=== PATIENT | male | born 1970 | race Caucasian/White ===

== ENCOUNTER 2016-11-10 11:16 | Emergency (ER) | payer OTHER ==
--- NOTE | 2016-11-10 13:03 | ED NURSING NOTES ---
Clinical Report - Nurses [facility] [place] [address] 11/10/2016 11:21 Patient: CORNELL LI TRIAGE Triage time 11:33. Chief Complaint: INJURY TO LEFT WRIST. Alert. --11:40 Shannan Roberto R.N. 11:32 11/10/16. BP: 125/87. HR: 70. RR: 18. O2 saturation: 100%. Pain level now: 06/27. --11:40 Shannan Roberto R.N. 11:42 11/10/16. Temp: 98.1 F. --11:42 Shannan Roberto R.N. Weight: 74.8 kg stated. Height/Length: 69 inches Per Patient. BMI: 24.4. --11:37 Shannan Roberto R.N. Medications Atorvastatin Calcium Oral. Omeprazole Oral. PARoxetine HCl Oral. --11:35 Shannan Roberto R.N. Allergies No Known Drug Allergy. --11:36 Shannan Roberto R.N. History Arrived by private vehicle. Historian: patient. Accompanied by (boss). Primary physician (Lamar Capps). ( Pt was at work, and cut his wrist on a metal strapping on a crate, pt bent over and passed out briefly, pt's boss called 911, they applied a pressure dressing). This occurred just prior to arrival and today. He sustained a laceration from a sharp edge. 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 PAST MEDICAL HX: Tetanus status: up-to-date. SOCIAL HX: Never smoker. No alcohol use or drug use. NUTRITIONAL RISK ASSESSMENT: The nutritional risk assessment revealed no deficiencies. FUNCTIONAL ASSESSMENT: Functional assessment: no impairments noted. --11:40 Shannan Roberto R.N. PROBLEMS: no known problems. ADDITIONAL SURGERIES: Vasectomy. --11:36 Shannan Roberto R.N. Interventions ID band on patient. To room. --11:40 Shannan Roberto R.N. PHYSICAL ASSESSMENT EXTREMITIES: Left distal radius: subcutaneous laceration with controlled bleeding. --11:43 Shannan Roberto R.N. NURSING PROGRESS NOTES 11:43 11/10/16. Patient identifiers checked. Call light placed in reach. Bed placed in lowest position. Patient ready for evaluation- chart flagged. --11:43 Shannan Roberto R.N. ( Left hand/wrist placed in warm water with hibiclens.). --11:47 Shannan Roberto R.N. 13:03. Applied sterile dressing consisting of 4x4 gauze, following the application of antibiotic ointment (bacitracin). Secured with tonia (coban applied to outermost dressing). --13:54 Shannan Roberto R.N. DISPOSITION / DISCHARGE Departure time: 1310. Condition at departure: improved. No learning barriers present. Reviewed wound care instructions. Reviewed referral to family practice for followup. Work note given. Verbalized understanding. Written instructions provided. The patient was discharged home. He left the Emergency Department ambulatory and via private vehicle. --13:51 Shannan Roberto R.N. 13:10 11/10/16. BP: 137/81. HR: 66. RR: 16. O2 saturation: 100%. Pain level now: 0/10. --13:51 Shannan Roberto R.N. ( 1 suture pack). --13:51 Shannan Roberto R.N. Locked/Released at 11/10/2016 13:55 by Shannan Roberto R.N.
--- NOTE | 2016-11-10 13:03 | ED NURSING NOTES ---
Clinical Report - [facility]es [facility] [place] [address] 11/10/2016 11:21 Patient: CORNELL LI TRIAGE Triage time 11:33. Chief Complaint: INJURY TO LEFT WRIST. Alert. --11:40 Shannan Roberto R.N. 11:32 11/10/16. BP: 125/87. HR: 70. RR: 18. O2 saturation: 100%. Pain level now: 06/27. --11:40 Shannan Roberto R.N. 11:42 11/10/16. Temp: 98.1 F. --11:42 Shannan Roberto R.N. Weight: 74.8 kg stated. Height/Length: 69 inches Per Patient. BMI: 24.4. --11:37 Shannan Roberto R.N. Medications Atorvastatin Calcium Oral. Omeprazole Oral. PARoxetine HCl Oral. --11:35 Shannan Roberto R.N. Allergies No Known Drug Allergy. --11:36 Shannan Roberto R.N. History Arrived by private vehicle. Historian: patient. Accompanied by (boss). Primary physician (Lamar Capps). ( Pt was at work, and cut his wrist on a metal strapping on a crate, pt bent over and passed out briefly, pt's boss called 911, they applied a pressure dressing). This occurred just prior to arrival and today. He sustained a laceration from a sharp edge. 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 PAST MEDICAL HX: Tetanus status: up-to-date. SOCIAL HX: Never smoker. No alcohol use or drug use. NUTRITIONAL RISK ASSESSMENT: The nutritional risk assessment revealed no deficiencies. FUNCTIONAL ASSESSMENT: Functional assessment: no impairments noted. --11:40 Shannan Roberto R.N. PROBLEMS: no known problems. ADDITIONAL SURGERIES: Vasectomy. --11:36 Shannan Roberto R.N. Interventions ID band on patient. To room. --11:40 Shannan Roberto R.N. PHYSICAL ASSESSMENT EXTREMITIES: Left distal radius: subcutaneous laceration with controlled bleeding. --11:43 Shannan Roberto R.N. NURSING PROGRESS NOTES 11:43 11/10/16. Patient identifiers checked. Call light placed in reach. Bed placed in lowest position. Patient ready for evaluation- chart flagged. --11:43 Shannan Roberto R.N. ( Left hand/wrist placed in warm water with hibiclens.). --11:47 Shannan Roberto R.N. 13:03. Applied sterile dressing consisting of 4x4 gauze, following the application of antibiotic ointment (bacitracin). Secured with tonia (coban applied to outermost dressing). --13:54 Shannan Roberto R.N. DISPOSITION / DISCHARGE Departure time: 1310. Condition at departure: improved. No learning barriers present. Reviewed wound care instructions. Reviewed referral to family practice for followup. Work note given. Verbalized understanding. Written instructions provided. The patient was discharged home. He left the Emergency Department ambulatory and via private vehicle. --13:51 Shannan Roberto R.N. 13:10 11/10/16. BP: 137/81. HR: 66. RR: 16. O2 saturation: 100%. Pain level now: 0/10. --13:51 Shannan Roberto R.N. ( 1 suture pack). --13:51 Shannan Roberto R.N. Locked/Released at 11/10/2016 13:55 by Shannan Roberto R.N.
--- NOTE | 2016-11-10 13:03 | ED CLINICAL REPORT ---
Clinical Report - Physicians/Mid Levels [facility] [address] [place] [address] 11/10/2016 11:21 Patient: CORNELL LI Time Seen: 11:31; initial patient contact. Arrived- By private vehicle. Historian- patient. HISTORY OF PRESENT ILLNESS Chief Complaint: Injury to the left wrist. The injury happened just prior to arrival. Occurred at work. The patient sustained a laceration from a sharp edge. Patient is experiencing mild pain. Patient denies injury to the head or neck. REVIEW OF SYSTEMS The patient sustained a laceration. No tingling, numbness or foreign body. All systems otherwise negative, except as recorded above. PAST HISTORY Negative. The patient's dominant hand is the right. Surgeries: Vasectomy. SOCIAL HISTORY Never smoker. No alcohol use or drug use. ADDITIONAL NOTES The nursing notes have been reviewed. PHYSICAL EXAM Vital Signs: 11/10/2016 11:42 Temp: 98.1 F. 11/10/2016 11:32 BP: 125/87. HR: 70. RR: 18. O2 saturation: 100%. Pain level now: 06/27. Have been reviewed as normal. Appearance: Alert. Oriented X3. No acute distress. Skin: Skin warm and dry. Extremities: Left wrist: mild tenderness and subcutaneous laceration. SEE LACERATION PROCEDURE NOTE #1. Neurovascular intact distally. Hand and wrist exam otherwise negative. Extremities otherwise negative. Neuro, Vascular and Tendons: Vascular status intact. Sensation intact. Motor intact. Tendon function intact. Neuro: Oriented X 3. No motor deficit. No sensory deficit. PROGRESS AND PROCEDURES Laceration Repair: Time: 13:01. Location: left wrist. Length: 6.0cm. Complexity: simple (local anesthesia used and sutured). Wound depth/shape- subcutaneous and linear. Distal neuro/vascular/tendon status normal. Anesthesia provided using 2% lidocaine (3 mL). Prepped with Hibiclens. Wound explored and cleansed with normal saline. Closure of skin: 4-0 Prolene (5 sutures). Post-procedure: he is stable and there are no complications. Bleeding is controlled and neuro-vascular status is intact distal to the wound. Dressing applied. Tetanus immunization up-to-date. Estimated blood loss: 4 mL. Disposition: Discharged home in good and improved condition. Condition: good. CLINICAL IMPRESSION Single superficial laceration to the left wrist.No foreign body present. INSTRUCTIONS Protect wound and keep wound area clean. You may wash wounds briefly, then dry. Apply bacitracin twice daily. Sutures/khushi should be removed in seven days. Do not work today. Your Current Medications: CONTINUE TAKING THE FOLLOWING MEDICATIONS: Atorvastatin Calcium Oral. Omeprazole Oral. PARoxetine HCl Oral. Follow-up: Follow up with your doctor in seven days for suture removal. Call for an appointment. Screening today revealed the patient's blood pressure to be in the pre-hypertensive range. The patient should follow up with a primary care provider for blood pressure management. (Electronically signed by Pete Adam Dr. 11/10/2016 14:35)
--- NOTE | 2016-11-10 13:03 | ED CLINICAL REPORT ---
Clinical Report - Physicians/Mid Levels [facility] [address] [place] [address] 11/10/2016 11:21 Patient: CORNELL LI Time Seen: 11:31; initial patient contact. Arrived- By private vehicle. Historian- patient. HISTORY OF PRESENT ILLNESS Chief Complaint: Injury to the left wrist. The injury happened just prior to arrival. Occurred at work. The patient sustained a laceration from a sharp edge. Patient is experiencing mild pain. Patient denies injury to the head or neck. REVIEW OF SYSTEMS The patient sustained a laceration. No tingling, numbness or foreign body. All systems otherwise negative, except as recorded above. PAST HISTORY Negative. The patient's dominant hand is the right. Surgeries: Vasectomy. SOCIAL HISTORY Never smoker. No alcohol use or drug use. ADDITIONAL NOTES The nursing notes have been reviewed. PHYSICAL EXAM Vital Signs: 11/10/2016 11:42 Temp: 98.1 F. 11/10/2016 11:32 BP: 125/87. HR: 70. RR: 18. O2 saturation: 100%. Pain level now: 06/27. Have been reviewed as normal. Appearance: Alert. Oriented X3. No acute distress. Skin: Skin warm and dry. Extremities: Left wrist: mild tenderness and subcutaneous laceration. SEE LACERATION PROCEDURE NOTE #1. Neurovascular intact distally. Hand and wrist exam otherwise negative. Extremities otherwise negative. Neuro, Vascular and Tendons: Vascular status intact. Sensation intact. Motor intact. Tendon function intact. Neuro: Oriented X 3. No motor deficit. No sensory deficit. PROGRESS AND PROCEDURES Laceration Repair: Time: 13:01. Location: left wrist. Length: 6.0cm. Complexity: simple (local anesthesia used and sutured). Wound depth/shape- subcutaneous and linear. Distal neuro/vascular/tendon status normal. Anesthesia provided using 2% lidocaine (3 mL). Prepped with Hibiclens. Wound explored and cleansed with normal saline. Closure of skin: 4-0 Prolene (5 sutures). Post-procedure: he is stable and there are no complications. Bleeding is controlled and neuro-vascular status is intact distal to the wound. Dressing applied. Tetanus immunization up-to-date. Estimated blood loss: 4 mL. Disposition: Discharged home in good and improved condition. Condition: good. CLINICAL IMPRESSION Single superficial laceration to the left wrist.No foreign body present. INSTRUCTIONS Protect wound and keep wound area clean. You may wash wounds briefly, then dry. Apply bacitracin twice daily. Sutures/khushi should be removed in seven days. Do not work today. Your Current Medications: CONTINUE TAKING THE FOLLOWING MEDICATIONS: Atorvastatin Calcium Oral. Omeprazole Oral. PARoxetine HCl Oral. Follow-up: Follow up with your doctor in seven days for suture removal. Call for an appointment. Screening today revealed the patient's blood pressure to be in the pre-hypertensive range. The patient should follow up with a primary care provider for blood pressure management. (Electronically signed by Pete Adam Dr. 11/10/2016 14:35)
--- NOTE | 2016-11-10 14:35 | ED MED RECONCILIATION SUMMARY ---
Patient: CORNELL LI Medication Reconciliation Report [facility] VisitID: [id number] [address] [place] [place] [address] 46y, M Registration Date/Time: 11/10/2016 Weight: 74.8 kg Height/Length: 69 in. BMI: 24.4 ALLERGIES: No Known Drug Allergy The patient's Home Medications are listed below: CONTINUE TAKING THE FOLLOWING MEDICATIONS: Atorvastatin Calcium Oral Omeprazole Oral PARoxetine HCl Oral The source(s) of the original Home Medication information: Not obtained. The following Medications were given to the patient in the Emergency Department: None. The following Medications were prescribed to the patient: None.
--- NOTE | 2016-11-10 14:35 | ED MAR SUMMARY ---
..... Medication Administration Record [facility] [address] [place], [place] [id number] Patient: CORNELL LI Visit ID: [id number] 46y, M Weight: 74.8 kg Height/Length: 69 in BMI: 24.4 ALLERGIES: No Known Drug Allergy
--- NOTE | 2016-11-10 14:35 | ED DISCHARGE INSTRUCTIONS ---
Patient: CORNELL LI General Instructions [facility] VisitID: [id number] [place] [address] 46y, M Registration Date/Time: 11/10/2016 Single superficial laceration to the left wrist.No foreign body present. INSTRUCTIONS Protect wound and keep wound area clean. You may wash wounds briefly, then dry. Apply bacitracin twice daily. Sutures/khushi should be removed in seven days. Do not work today. Your Current Medications: CONTINUE TAKING THE FOLLOWING MEDICATIONS: Atorvastatin Calcium Oral. Omeprazole Oral. PARoxetine HCl Oral. Follow-up: Follow up with your doctor in seven days for suture removal. Call for an appointment. Screening today revealed the patient's blood pressure to be in the pre-hypertensive range. The patient should follow up with a primary care provider for blood pressure management. ADDITIONAL INFORMATION Laceration (All Closures) Alaceration is a cut through the skin. This will usually require stitches (sutures) or khushi if it is deep. Minor cuts may be treated with a surgical tape closure orskin glue. Home care The following guidelines will help you care for your laceration at home: Extremity, face, or trunk wounds Keep the wound clean and dry. If a bandage was applied and it becomes wet or dirty, replace it. Otherwise, leave it in place for the first 24 hours. If stitches or khushi were used, clean the wound daily. After removing the bandage, wash the area with soap and water. Use a wet cotton swab to loosen and remove any blood or crust that forms. The doctor may prescribe an antibiotic cream or ointment to prevent infection. Do not stop taking this medication until you have finished the prescribed course or the doctor tells you to stop. The doctor may also prescribe medications for pain. Follow the doctors instructions for taking these medications. You may remove the bandage to shower as usual after the first 24 hours, but do not soak the area in water (no swimming) until the stitches or khushi are removed. If surgical tape was used, keep the area clean and dry. If it becomes wet, blot it dry with a towel. If skin glue was used, do not scratch, rub, or pick at the adhesive film. Do not place tape directly over the film. Do not apply liquid, ointment, or creams to the wound while the film is in place. Do not clean the wound with peroxide and do not apply ointments. Avoid activities that cause heavy sweating until the film has fallen off. Protect the wound from prolonged exposure to sunlight or tanning lamps. You may shower as usual but do not soak the wound in water (no baths or swimming). The film will fall off by itself in 510 days. Scalp wounds During the first two days, you may carefully rinse your hair in the shower to remove blood, glass or dirt particles. After two days, you may shower and shampoo your hair normally. Do not soak your scalp in the tub or go swimming until the stitches or khushi have been removed. Talk with your doctor before applying any antibiotic ointment to the wound. Mouth wounds Eat soft foods to reduce pain. If the cut is inside of your mouth, clean by rinsing after each meal and at bedtime with a mixture of equal parts water and hydrogen peroxide (do not swallow!). Or, you can use a cotton swab to directly apply hydrogen peroxide onto the cut. Mouth wounds can be painful when eating. You may use an [id number] local numbing solution for pain relief. If this is not available, you may use any numbing solution for teething babies. You may apply this directly to the sores with a cotton-tip swab or with your finger. Follow-up care Follow up with your health care provider. Most skin wounds heal within ten days. Mouth and facial wounds heal within five days. However, even with proper treatment, a wound infection may sometimes occur. Therefore, you should check the wound daily for signs of infection listed below. Stitches should be removed from the face within five days; stitches and khushi should be removed from other parts of the body within 714 days. If dissolving stitches were used in the mouth, these will fall out or dissolve without the need for removal. If tape closures were used, remove them yourself if they have not fallen off after 7 days. Ifskin glue was used, the film will fall off by itself in 510 days. When to seek medical care Get prompt medical attention if any of these occur: Bleeding not controlled by direct pressure Signs of infection, including increasing pain in the wound, increasing wound redness or swelling, or pus coming from the wound Fever of 100.4F (38C) or higher, or as directed by your health care provider Stitches or khushi come apart or fall out or surgical tape falls off before 7 days Wound edges re-open Bandage Change If the bandage becomes wet or dirty, replace it. Otherwise, leave it in place for the first 24 hours. Then once a day: After removing the bandage, wash the area with soap and water. Use a wet cotton swab to loosen and remove any blood or crust that forms on the wound. After cleaning, apply a thin layer of antibiotic ointment or cream. Reapply the bandage. You may shower as usual after the first 24 hours. If the bandage is on an arm or leg, cover it with a plastic bag rubber banded at both ends before showering. No tub baths or swimming until the bandage is removed and the wound healed (at least 7 days). You have been given the following additional information: Laceration, All Dressing Change Do not work today. (Electronically signed by Pete Adam Dr. 11/10/2016 14:35)
--- NOTE | 2016-11-10 14:35 | ED MED RECONCILIATION SUMMARY ---
Patient: CORNELL LI Medication Reconciliation Report [facility] VisitID: [id number] [address] [place] [place] [address] 46y, M Registration Date/Time: 11/10/2016 Weight: 74.8 kg Height/Length: 69 in. BMI: 24.4 ALLERGIES: No Known Drug Allergy The patient's Home Medications are listed below: CONTINUE TAKING THE FOLLOWING MEDICATIONS: Atorvastatin Calcium Oral Omeprazole Oral PARoxetine HCl Oral The source(s) of the original Home Medication information: Not obtained. The following Medications were given to the patient in the Emergency Department: None. The following Medications were prescribed to the patient: None.
--- NOTE | 2016-11-10 14:35 | ED MAR SUMMARY ---
..... Medication Administration Record [facility] [address] [place], [place] [id number] Patient: CORNELL LI Visit ID: [id number] 46y, M Weight: 74.8 kg Height/Length: 69 in BMI: 24.4 ALLERGIES: No Known Drug Allergy
== END 2016-11-10 13:10 | disposition home or self-care (01) ==
LOC: ED SRH 11:16
DX: S61.512A Laceration without foreign body of left wrist, initial encounter (principal); W26.9XXA Contact with unspecified sharp object(s), initial encounter; Y93.9 Activity, unspecified; Y99.0 Civilian activity done for income or pay; Y92.89 Other specified places as the place of occurrence of the external cause

== ENCOUNTER 2016-11-17 16:14 | Emergency (ER) | payer OTHER ==
--- NOTE | 2016-11-17 16:42 | ED CLINICAL REPORT ---
Clinical Report - Physicians/Mid Levels [facility] [address] [place] [address] 11/17/2016 16:14 Patient: CORNELL LI Time Seen: 1621. Arrived- By private vehicle. Historian- patient. HISTORY OF PRESENT ILLNESS Chief Complaint: (wound check). This started 7 days ago and is still present but is improving. It was abrupt in onset and has been constant but is not gone now. It has been located on the left upper extremity (wrist). A cause has been identified (sharp metal object). Similar symptoms previously: None. Recent medical care: The patient was seen recently in the emergency department (stictched in ED.). REVIEW OF SYSTEMS No fever, chest pain, abdominal pain, nausea or vomiting. All systems otherwise negative, except as recorded above. PAST HISTORY See nurses notes. Tetanus immunization status is up-to-date. SOCIAL HISTORY Never smoker. No alcohol use or drug use. Is a local resident. ADDITIONAL NOTES The nursing notes have been reviewed. PHYSICAL EXAM Vital Signs: 11/17/2016 16:20 BP: 139/89. HR: 98. RR: 15. O2 saturation: 100%. Temp: 97.6 F. Pain level now: 0/10. Oxygen saturation normal. Appearance: Alert. Oriented X3. No acute distress. Eyes: Pupils equal, round and reactive to light. Conjunctivae and eyelids normal. ENT: Ears normal. Nose normal. Pharynx normal. CVS: Normal heart rate and rhythm. Heart sounds normal. Respiratory: No respiratory distress. Breath sounds normal. Chest nontender. Abdomen: Nontender. No organomegaly. Skin: (5 stitches noted in the patient's base of the left palm. No erythema. No drainage. areas nontender. No swelling. No edema. No masses. No bleeding. Areas clean and dry and intact. Hand is neurovascularly intact. Patient with full active range of motion of all major joints of the hand and wrist.). PROGRESS AND PROCEDURES PROCEDURES (suture removal procedure note. Patient was prepped and draped in the normal fashion. Using a scissors and forceps, the suture was gently lifted away from the skin and the sharp end of the scissors was inserted just under the loop of the suture above the skin. The suture was then cut and the suture was slipped out of the skin. This is done proximally 5 times. Patient tolerated procedure well. No bleeding noted. Steri-Strips were applied to the wound to decrease the risk of dehiscence. Patient tolerated procedure well. No complications. No blood loss.). Course of Care: the patient is a pleasant 46-year-old male presenting for evaluation of suture removal. Patient has been having good progression of the wound. No concerns at this time for infection. Wound is clean dry and intact. Sutures were removed. To reduce the risk of wound dehiscence, Steri-Strips were applied. No other signs of infection. Patient as been resting in bed in no acute distress. Discussed with patient wound care and wound infection precautions. Patient is a stable outpatient candidate. Patient longer needs to return for further workup unless there is concerns in the future for wound infection. Discussed with the patient's workup here in the emergency department including diagnosis. All questions answered. The patient expressed understanding of these instructions and was agreeable to them. Disposition: Discharged. Condition: good. CLINICAL IMPRESSION 11/17/2016 16:20 BP: 139/89. HR: 98. RR: 15. O2 saturation: 100%. Temp: 97.6 F. Pain level now: 0/10. Wound check Hypertensive. Oxygen saturation normal. INSTRUCTIONS Warnings: GENERAL WARNINGS: Return or contact your physician immediately if your condition worsens or changes unexpectedly, if not improving as expected, or if other problems arise. Specifically return if pain, vomiting, bleeding, breathing difficulty or fever. Your Current Medications: CONTINUE TAKING THE FOLLOWING MEDICATIONS: Atorvastatin Calcium Oral. Omeprazole Oral. PARoxetine HCl Oral. Follow-up: Return to the emergency department as needed. Follow up with your doctor in three days. Reason for referral: recheck today's concerns. Summary of care provided to patient via paper. Screening today revealed the patient's blood pressure to be in the normal range. The patient should follow up with a primary care provider for blood pressure management. Understanding of the discharge instructions verbalized by patient. (Electronically signed by Pablo Dai Dr. 11/18/2016 19:22)
--- NOTE | 2016-11-17 16:42 | ED NURSING NOTES ---
Clinical Report - Nurses [facility] [address] [place] [address] 11/17/2016 16:14 Patient: CORNELL LI TRIAGE Triage time 1622 PM. Acuity: LEVEL 5. Chief Complaint: RECHECK OF WOUND and SUTURE REMOVAL. Alert. No acute distress. SEPSIS SCREEN: Sepsis Screen. Negative (no infection suspected/documented). LB COMA SCORE: Lb Coma Scale: 15- eyes open spontaneously (4); best verbal response- oriented x 4 (5); best motor response- obeys commands (6). --16:24 Tiffany Miranda R.N. 16:20 11/17/16. BP: 139/89 (regular adult cuff) taken on the left arm, via an automated monitor, while sitting. HR: 98. RR: 15. O2 saturation: 100% on room air. Temp: 97.6 F (oral). Pain level now: 0/10. --16:24 Tiffany Miranda R.N. Weight: 74.8 kg stated. Height/Length: 69 inches Per Patient. BMI: 24.4. --16:21 Tiffany Miranda R.N. Medications Atorvastatin Calcium Oral. --16:21 Tiffany Miranda R.N. Omeprazole Oral. PARoxetine HCl Oral. --16:21 Tiffany Miranda R.N. Allergies No Known Drug Allergy. --16:21 Tiffany Miranda R.N. History Arrived by private vehicle. Historian: patient. Unaccompanied. ( Pt is here for sutures removal from about 1 week ago which were placed here in our ED, denies any pain, fevers, drainage.). Location: left hand. Has had no redness, swelling or drainage from wound. No fever or skin rash. Denies pain. Previous treatment: Previously seen in ED seven days ago. Laceration repaired. No topical, PO, IM or IV antibiotic given or prescription given. PAST MEDICAL HX: Tetanus status: up-to-date. Immunizations: up-to-date. SOCIAL HX: Never smoker. No alcohol use or drug use. No infectious disease exposure. ABUSE ASSESSMENT: No report of abuse. SELF HARM ASSESSMENT: A self harm assessment was performed. The patient answered "no" to the question "Do you have thoughts of harming or killing yourself?" and "Have you recently had thoughts about harming or killing others?". FALL RISK ASSESSMENT: Fall risk assessment completed. No fall risk identified. NUTRITIONAL RISK ASSESSMENT: The nutritional risk assessment revealed no deficiencies. FUNCTIONAL ASSESSMENT: Functional assessment: no impairments noted. LEARNING NEEDS ASSESSMENT: The learning needs assessment revealed no barriers. SKIN INTEGRITY ASSESSMENT: Skin integrity risk assessment completed. No skin integrity risk identified. --16:24 Tiffany Miranda R.N. PROBLEMS: Laceration. --16:21 Tiffany Miranda R.N. ADDITIONAL SURGERIES: Vasectomy. --16:21 Tiffany Miranda R.N. Interventions ID band on patient. --16:24 Tiffany Miranda R.N. PHYSICAL ASSESSMENT Ambulatory to room. GENERAL / NEURO / PSYCH: Alert. Oriented X 4. Appears in no acute distress. Patient's nutrition appears within normal limits. EXTREMITIES: Extremity pulses are within normal limits. Capillary refill is less than 2 seconds in the extremities. Sensation intact in extremities. ROM of extremities within normal limits. SKIN: Skin is warm and dry. Healing wound. No signs or symptoms of infection. Sutures intact. No swelling or drainage. --16:25 Tiffany Miranda R.N. NURSING PROGRESS NOTES The initial plan of care for this patient has been created This plan of care was discussed with the patient. Neuro-vascular extremity check. Reassurance given. Patient identifiers checked. Call light placed in reach. Side rails up x 1. Bed placed in lowest position. Brakes of bed on. --16:25 Tiffany Miranda R.N. DISPOSITION / DISCHARGE Condition at departure: improved and stable. The goals identified in the patient's plan of care were met. Reviewed warnings (s/s of infection and wound care with steri-strip). Reviewed wound care instructions. Patient verbalized understanding. Written instructions provided in Tajik. No medication instructions or referrals given to the patient. The patient was discharged by the physician. He was discharged home and unaccompanied at time of discharge. He left the Emergency Department ambulatory and via private vehicle. FALL RISK ASSESSMENT: Fall risk assessment completed. No fall risk identified. --16:49 Tiffany Miranda R.N. 16:47 11/17/16. BP: 139/89 (regular adult cuff) taken on the left arm, via an automated monitor, while sitting. HR: 75. RR: 15. O2 saturation: 100% on room air. Temp: 98.3 F (oral). Pain level now: 0/10. --16:49 Tiffany Miranda R.N. Departure time: 1647 PM. --16:49 Tiffany Miranda R.N. Locked/Released at 11/17/2016 16:49 by Tiffany Miranda R.N.
--- NOTE | 2016-11-18 19:22 | ED MED RECONCILIATION SUMMARY ---
Patient: CORNELL LI Medication Reconciliation Report [facility] VisitID: [id number] [address] [place] [address] 46y, M Registration Date/Time: 11/17/2016 Weight: 74.8 kg Height/Length: 69 in. BMI: 24.4 ALLERGIES: No Known Drug Allergy The patient's Home Medications are listed below: CONTINUE TAKING THE FOLLOWING MEDICATIONS: Atorvastatin Calcium Oral Omeprazole Oral PARoxetine HCl Oral The source(s) of the original Home Medication information: Not obtained. The following Medications were given to the patient in the Emergency Department: None. The following Medications were prescribed to the patient: None.
--- NOTE | 2016-11-18 19:22 | ED MAR SUMMARY ---
..... Medication Administration Record [facility] [address] [place], [place] [id number] Patient: CORNELL LI Visit ID: [id number] 46y, M Weight: 74.8 kg Height/Length: 69 in BMI: 24.4 ALLERGIES: No Known Drug Allergy
--- NOTE | 2016-11-18 19:22 | ED MAR SUMMARY ---
..... Medication Administration Record [facility] [address] [place] [id number] Patient: CORNELL LI Visit ID: [id number] 46y, M Weight: 74.8 kg Height/Length: 69 in BMI: 24.4 ALLERGIES: No Known Drug Allergy
--- NOTE | 2016-11-18 19:22 | ED MED RECONCILIATION SUMMARY ---
Patient: CORNELL LI Medication Reconciliation Report [facility] VisitID: [id number] [address] [place] [address] 46y, M Registration Date/Time: 11/17/2016 Weight: 74.8 kg Height/Length: 69 in. BMI: 24.4 ALLERGIES: No Known Drug Allergy The patient's Home Medications are listed below: CONTINUE TAKING THE FOLLOWING MEDICATIONS: Atorvastatin Calcium Oral Omeprazole Oral PARoxetine HCl Oral The source(s) of the original Home Medication information: Not obtained. The following Medications were given to the patient in the Emergency Department: None. The following Medications were prescribed to the patient: None.
--- NOTE | 2016-11-18 19:22 | ED DISCHARGE INSTRUCTIONS ---
Patient: CORNELL LI General Instructions [facility] VisitID: [id number] [address] [place] [address] 46y, M Registration Date/Time: 11/17/2016 11/17/2016 16:20 BP: 139/89. HR: 98. RR: 15. O2 saturation: 100%. Temp: 97.6 F. Pain level now: 0/10. Wound check Hypertensive. Oxygen saturation normal. INSTRUCTIONS Warnings: GENERAL WARNINGS: Return or contact your physician immediately if your condition worsens or changes unexpectedly, if not improving as expected, or if other problems arise. Specifically return if pain, vomiting, bleeding, breathing difficulty or fever. Your Current Medications: CONTINUE TAKING THE FOLLOWING MEDICATIONS: Atorvastatin Calcium Oral. Omeprazole Oral. PARoxetine HCl Oral. Follow-up: Return to the emergency department as needed. Follow up with your doctor in three days. Reason for referral: recheck today's concerns. Summary of care provided to patient via paper. Screening today revealed the patient's blood pressure to be in the normal range. The patient should follow up with a primary care provider for blood pressure management. Understanding of the discharge instructions verbalized by patient. ADDITIONAL INFORMATION Wound Check, No Infection Your laceration is healing as expected. There is no infection. Home care The following guidelines will help you care for your wound at home: Keep the wound clean and dry. If you were given a bandage, you may change it daily as follows: After removing the bandage, wash the area with soap and water. Use a wet cotton swab to loosen and remove any blood or crust that forms. After cleaning, apply a thin layer of antibiotic ointment. This will keep the wound clean and make it easier to remove the stitches. Reapply a fresh bandage. You may remove the bandage to shower as usual after the first 24 hours, but do not soak the area in water (no swimming) until the sutures are removed. If surgical tape was used, keep the area clean and dry. If it becomes wet, blot it dry with a towel. Follow-up care If sutures or khushi are in place, it is important to keep your appointment for removal. If they are left in place too long permanent gardner may remain. If surgical tape closures were applied, you may remove them yourself if they have not fallen of by 10 days after the injury. When to seek medical care Get prompt medical attention if any of the following occur: Increasing pain in the wound Redness, swelling, or pus coming from the wound Fever of 100.4F (38C) or higher, or as directed by your health care provider If sutures or khushi come apart or fall out before your next appointment If the surgical tape closures fall off within seven days, or the wound edges re-open You have been given the following additional information: Wound Check, Lac F/U (No Infection) (Electronically signed by Pablo Dai Dr. 11/18/2016 19:22)
== END 2016-11-17 16:47 | disposition home or self-care (01) ==
LOC: ED SRH 16:14
DX: S61.512D Laceration without foreign body of left wrist, subsequent encounter (principal); I10 Essential (primary) hypertension; W45.8XXD Other foreign body or object entering through skin, subsequent encounter; Z48.02 Encounter for removal of sutures